=== PATIENT | female | born 1990 | race Caucasian/White ===

== ENCOUNTER 2018-04-26 19:16 | Emergency (ER) | payer BC ==
[~2018-04-26] VITALS: Ht 165.1 cm; Wt 50.0 kg
--- NOTE | 2018-04-26 19:53 | NUR ---
PT TO ED FOR GLF ON 3 STAIRS AFTER SLIPPING ON LAUNDRY AT 1830 TODAY. PAIN REPORTED TO LEFT LOWER BACK. XRAY COMPLETE. CONNECTED TO MONITOR.VSS. CALL LIGHT WITHIN REACH. NO NEEDS AT THIS TIME.
[2018-04-26] MEDS ORDERED: KETOROLAC 30 MG/1 ML ONE (20:08)
[2018-04-26] MEDS ORDERED: METHOCARBAMOL 750 MG TABLET ONE (20:08)
[2018-04-26] MEDS ORDERED: KETOROLAC 30 MG/1 ML IM ONE (20:30)
[2018-04-26] MEDS ORDERED: METHOCARBAMOL 750 MG TABLET PO ONE (20:30)
[2018-04-26 20:37] VITALS: BP 119/79
--- NOTE | 2018-04-26 20:37 | NUR ---
all results back at this time. chart up for recheck. pt resting in room with family at bedside. no needs at this time. vss. call light within reach.
== END 2018-04-26 20:57 | disposition home or self-care (01) ==
LOC: ED 20:15
DX: S30.0XXA Contusion of lower back and pelvis, initial encounter (principal); W01.0XXA Fall on same level from slipping, tripping and stumbling without subsequent striking against object, initial encounter; Y93.89 Activity, other specified; Y92.009 Unspecified place in unspecified non-institutional (private) residence as the place of occurrence of the external cause; Y99.8 Other external cause status
CPT/HCPCS: 72110; 96372; 99283; J1885

== ENCOUNTER → 2020-07-16 | Outpatient (CLI) | payer OTHER ==
[~2020-07-16] MED LIST: ACET-1600 PO; ALBU90AE INH; ASCO100018 PO; CHOL500045 PO; HYDR-826 PO; IBUP200C8 PO; ONDA4TAB7 PO; PROP10TA16 PO; SUMA100T4 PO; VITA1TAB19 PO; [UNRECOGNIZED DRUG - REMARK] PO
[2020-07-16 15:24] LABS: BASOPHILS % (AUTO) 1 % (0-1); EOSINOPHILS % (AUTO) 2 % (1-7); LYMPHOCYTES % (AUTO) 30 % (22-44); MEAN CORPUSCULAR HEMOGLOBIN 31.6 pg (27.0-34.8); MEAN CORPUSCULAR HGB CONC 34.3 g/dL (32.4-35.8); MEAN PLATELET VOLUME 7.3 fL (7.4-10.4); MONOCYTES % (AUTO) 6 % (2-9); NEUTROPHILS % (AUTO) 61 % (42-75); PLATELET COUNT 338 x10^3/uL (130-400); RED BLOOD COUNT 4.47 x10^6/uL (3.82-5.3); RED CELL DISTRIBUTION WIDTH 12.6 % (9.6-15.2)
[2020-07-16 15:28] LABS: MD NO
[2020-07-16 15:32] LABS: MICROSCOPIC NOT IND
[2020-07-16 15:38] LABS: ANION GAP 4 mmol/L (5-15); CALCIUM 9.5 mg/dL (8.5-10.1); CHLORIDE 107 mmol/L (98-107); CREATININE 0.61 mg/dL (0.55-1.02)
== END | disposition home or self-care (01) ==
LOC: STAR 14:33
PROVIDERS: ATTEND Obstetrics & Gynecology Gynecology
DX: Z01.812 Encounter for preprocedural laboratory examination (principal); R10.2 Pelvic and perineal pain; N94.12 Deep dyspareunia; N94.5 Secondary dysmenorrhea; Z20.822 Contact with and (suspected) exposure to COVID-19
CPT/HCPCS: 36415; 80048; 81003; 84703; 85025; U0003; U0005

== ENCOUNTER 2020-07-23 09:41 | Day surgery (SDC) | payer OTHER ==
[~2020-07-23] VITALS: Ht 165.1 cm; Wt 52.1 kg
[2020-07-23] MEDS ORDERED: LACTATED RINGERS 1,000 ML IV SCH (10:00)
[2020-07-23] MEDS ORDERED: LIDOCAINE-MPF 1%, 2ML INFIL ONE (10:00)
[2020-07-23] MEDS ORDERED: CHLORHEXIDINE 15 ML UDC PO ONE (10:00)
[2020-07-23 10:09] VITALS: BP 129/87
[2020-07-23 10:42] LABS: HCG UR SG 1.006 (1.003-1.030)
[2020-07-23] MEDS ORDERED: SILVER NITRATE STICK TP ONE (11:21)
[2020-07-23] MEDS ORDERED: SCOPOLAMINE 1MG PATCH TD ONE (11:37)
[2020-07-23] MEDS ORDERED: MIDAZOLAM 1 MG/ML, 2ML ONE (11:40)
[2020-07-23] MEDS ORDERED: FENTANYL PF 250 MCG/5ML ONE (11:40)
[2020-07-23] MEDS ORDERED: PROPOFOL 150 ML ONE (11:46)
[2020-07-23] MEDS ORDERED: PROPOFOL 10 MG/ML, 20ML ONE (12:06)
[2020-07-23] MEDS ORDERED: SUCCINYLCHOLINE 20 MG/ML, 10ML ONE (12:06)
[2020-07-23] MEDS ORDERED: GLYCOPYRROLATE 0.2MG/1ML, 5ML ONE (12:06)
[2020-07-23] MEDS ORDERED: ROCURONIUM 10MG/ML,5ML ONE (12:06)
[2020-07-23] MEDS ORDERED: NEOSTIGMINE 1 MG/ML, 10ML ONE (12:06)
[2020-07-23] MEDS ORDERED: ONDANSETRON 2MG/ML, 2ML ONE (12:06)
[2020-07-23] MEDS ORDERED: CEFAZOLIN 1,000 MG ONE (12:06)
[2020-07-23] MEDS ORDERED: DEXAMETHASONE 4 MG/ML, 1ML ONE (12:06)
[2020-07-23] MEDS ORDERED: SUGAMMADEX 200 MG/2 ML IVPush ONE (13:27)
[2020-07-23] MEDS ORDERED: KETOROLAC 30 MG/1 ML ONE (13:28)
[2020-07-23] MEDS ORDERED: FENTANYL PF 100 MCG/2ML ONE (13:59)
[2020-07-23] MEDS ORDERED: PROMETHAZINE 25 MG/ML, 1ML IV PRN (14:00)
[2020-07-23] MEDS ORDERED: ALBUTEROL SULFATE 2.5 MG/3 ML NPPB PRN (14:00)
[2020-07-23] MEDS ORDERED: ACETAMINOPHEN 325 MG TABLET PO PRN (14:00)
[2020-07-23] MEDS ORDERED: DIAZEPAM 5 MG/ML, 2ML IVPush PRN (14:00)
[2020-07-23] MEDS ORDERED: MEPERIDINE/PF 25MG/0.5ML IVPush PRN (14:00)
[2020-07-23] MEDS ORDERED: LABETALOL 5MG/ML, 20ML IV PRN (14:00)
[2020-07-23] MEDS ORDERED: hydrALAzine 20 MG/ML, 1ML IV PRN (14:00)
[2020-07-23] MEDS ORDERED: OXYcodone 5 MG/5 ML ORAL.SOL UDC PO PRN (14:00)
[2020-07-23] MEDS ORDERED: OXYcodone 5 MG/5 ML ORAL.SOL UDC ONE (14:00)
[2020-07-23] MEDS: FENTANYL PF 100 MCG/2ML IV PRN ×2 (14:03→14:08)
[2020-07-23] MEDS ORDERED: HYDROmorphone 1 MG/ML, 1ML INJ ONE (14:22)
[2020-07-23] MEDS: HYDROmorphone 2 MG/ML, 1ML IVPush PRN ×2 (14:23→14:28)
== END 2020-07-23 17:00 | disposition home or self-care (01) ==
LOC: OUT 09:41
PROVIDERS: ATTEND Obstetrics & Gynecology Gynecology
DX: N80.3 Endometriosis of pelvic peritoneum (principal); N80.5 Endometriosis of intestine; N94.5 Secondary dysmenorrhea; N83.202 Unspecified ovarian cyst, left side; N94.12 Deep dyspareunia; G43.109 Migraine with aura, not intractable, without status migrainosus; J45.909 Unspecified asthma, uncomplicated; Z79.899 Other long term (current) drug therapy; Z88.2 Allergy status to sulfonamides; Z88.8 Allergy status to other drugs, medicaments and biological substances; Z91.040 Latex allergy status; Z80.3 Family history of malignant neoplasm of breast
CPT/HCPCS: 58662; 81025; 88305; J0330; J0690; J1100; J1170; J1885; J2250; J2405; J2704; J2710; J3010; J7120

== ENCOUNTER 2020-10-12 11:04 | Emergency (ER) | payer OTHER ==
[~2020-10-12] VITALS: Ht 167.6 cm; Wt 50.0 kg
--- NOTE | 2020-10-12 11:47 | NUR ---
pa at bs
[2020-10-12] MEDS ORDERED: MORPHINE SULFATE 4 MG/ML, 1ML ONE (11:53)
[2020-10-12] MEDS ORDERED: ONDANSETRON 2MG/ML, 2ML ONE (11:53)
[2020-10-12] MEDS ORDERED: SODIUM CHLORIDE 0.9% 1,000ML IVBOLUS ONE (12:00)
[2020-10-12] MEDS ORDERED: MORPHINE SULFATE 4 MG/ML, 1ML IVPush PRN (12:00)
[2020-10-12] MEDS ORDERED: ONDANSETRON 2MG/ML, 2ML IVPush ONE (12:00)
--- NOTE | 2020-10-12 12:08 | NUR ---
PIV PLACED & LABS DRAWN, PT MEDICATED PER EMAR. NADN/VSS. CALL LIGHT WITHIN REACH, BED IN LOWEST POSITION, FRIEND AT BS
[2020-10-12 12:18] LABS: BASOPHILS % (AUTO) 1 % (0-1); EOSINOPHILS % (AUTO) 2 % (1-7); LYMPHOCYTES % (AUTO) 23 % (22-44); MEAN CORPUSCULAR HEMOGLOBIN 32.3 pg (27.0-34.8); MEAN CORPUSCULAR HGB CONC 34.9 g/dL (32.4-35.8); MEAN PLATELET VOLUME 7.4 fL (7.4-10.4); MONOCYTES % (AUTO) 6 % (2-9); NEUTROPHILS % (AUTO) 69 % (42-75); PLATELET COUNT 350 x10^3/uL (130-400); RED BLOOD COUNT 4.79 x10^6/uL (3.82-5.3); RED CELL DISTRIBUTION WIDTH 12.1 % (9.6-15.2)
[2020-10-12 12:24] LABS: ANION GAP 5 mmol/L (5-15); CALCIUM 9.1 mg/dL (8.5-10.1); CHLORIDE 106 mmol/L (98-107); CREATININE 0.75 mg/dL (0.55-1.02)
[2020-10-12 12:41] LABS: MICROSCOPIC NOT IND
--- NOTE | 2020-10-12 13:17 | NUR ---
Covering primary for break; pt to CT scan with tech.
[2020-10-12 13:32] VITALS: BP 111/73
--- NOTE | 2020-10-12 13:32 | NUR ---
pt back from CT, connected to monitors. call light within reach. PT STATES NO NEEDS AT THIS TIME.
--- NOTE | 2020-10-12 13:45 | NUR ---
PA AT FOR RECHECK
--- NOTE | 2020-10-12 14:07 | NUR ---
Patient given discharge instructions and they have confirmed that they understand the instructions. Patient ambulatory with steady gait.
== END 2020-10-12 14:09 | disposition home or self-care (01) ==
LOC: ED 12:22
DX: K59.00 Constipation, unspecified (principal); R10.9 Unspecified abdominal pain
CPT/HCPCS: 36415; 74176; 80048; 81003; 82040; 84703; 85025; 96361; 96374; 96375; 99284; J2270; J2405; J7030